=== PATIENT | male | born 2005 | race African-American/Black ===

== ENCOUNTER 2025-02-26 21:43 | Emergency (ER) | payer BC, OTHER ==
[2025-02-26] MEDS ORDERED: cefTRIAXone (ROCEPHIN) 500 MG VIAL ONE (22:24)
[2025-02-27 13:44] LABS: Chlam.trachomatis by PCR,Urine Not Detected (NotDetected); GC N.gonorrhoeae PCR,UrineVOID Not Detected (NotDetected)
== END 2025-02-26 23:04 | disposition home or self-care (01) ==
LOC: ERS 21:43
DX: A64 Unspecified sexually transmitted disease (principal)
CPT/HCPCS: 87491; 87591; 96372; 99283; J0696

== ENCOUNTER 2025-05-13 08:44 | Emergency (ER) | payer BC, SELFPAY | END 2025-05-13 09:36 | disposition home or self-care (01) | LOC: ERS 08:44 | DX: K52.9 Noninfective gastroenteritis and colitis, unspecified (principal) | CPT/HCPCS: 99283 ==